=== PATIENT | male | born 1960 | race Caucasian/White ===

== ENCOUNTER 2019-10-18 11:39 | Outpatient (CLI) | payer MEDICARE ==
[~2019-10-18] VITALS: Ht 177.8 cm; Wt 70.6 kg
--- NOTE | ~2019-10-18 | HEMODYNAMI ---
PATIENT:MICHELLE DAVEY MEDICAL RECORD: [id number] : 56 [id number] ADMISSION DATE: 10/18/19 Generatedon:10/19/20198:58 Patient name: MICHELLE DAVEY Patient #: [id number] SSN: [id number] : 1960 Date of study: 10/19/2019 Page: Of Hemodynamic Procedure Report Patient Data Patient Demographics Procedure consent was obtained First Name: MICHELLE Gender: Male Last Name: TAMICA : 1960 Middle Initial: D Age: 59 year(s) Patient #: [id number] Race: SSN: [id number] Additional ID: [id number] Contact details [address]: [address] [place] [address] State: [place] City: [place] Zip code: [address] Past Medical History Allergies Allergen Reaction Date Comments Reported Other allergy 10/18/2019 PCN Other allergy 10/19/2019 PCN, STATIN Admission Admission Data Admission Date: 10/18/2019 Admission Time: 12:47 Arrival Date: 10/18/2019 Arrival Time: 0:00 Admit Source: Emergency Insurance Payor: Private department health insurance Room #: D.2122 [facility] #: [id number] Height (in.): 70.08 BSA: 1.95 (m2) Height (cm.): 178 BMI: 24.3 (kg/m2) Weight (lbs.): 169.76 Weight (kg.): 77 Lab Results Lab Result Date: 10/18/2019 Lab Result Time: 0:00 Biochemistry Name Units Result Min Max BUN mg/dl 21 --(----)-* 7 18 Creatinine mg/dl 0.8 --(-*--)-- 0.6 1.3 eGFR ml/min 90 --(*---)-- 90 120 NONAFRICAN CBC Name Units Result Min Max Hematocrit % 44.8 --(*---)-- 42 54 Hemoglobin g/dl 16.1 --(--*-)-- 13.5 17.5 Procedure Procedure Types Cath Procedure Diagnostic Procedure Sedation Charges Moderate Sedation up to 15 minutes PCI Procedure Coronary Stent Coronary Stent Initial PTCA Coronary Atherectomy Atherectomy w/Stent Coronary Initial Hemochron ACT Test Procedure Description Procedure Date Procedure Date: 10/19/2019 Procedure Start Time: 8:27 Procedure End Time: 8:47 Procedure Staff Name Function Kody Dodd MD Performing Physician Roni Calabrese RN Nurse Spring Guevara RT Scrub Patricia Sun RT Monitor Procedure Data Cath Procedure Fluoroscopy Diagnostic fluoroscopy Total fluoroscopy Time: 4.7 time: 4.7 min min Diagnostic fluoroscopy Total fluoroscopy dose: 351 dose: 351 mGy mGy Contrast Material Contrast Material Type Amount (ml) Isovue 370 80 Entry Location Entry Primary Successful Side Size Upsize Upsize Entry Closure Succes sful Closure Location (Fr) 1 (Fr) 2 (Fr) Remarks Device Remarks Femoral Left 6 Fr Exoseal artery Short Estimated blood loss: 10 ml Procedure Complications No complications Procedure Medications Medication Administration Route Dosage 0.9% NaCl I.V. 100 ml/hr Oxygen etCO2 Nasal cannula 2 l/min Heparin Flush Bag added to field 2 bags (1000units/500ml NS) Lidocaine 2% added to field 20 Versed I.V. 2 mg Fentanyl I.V. 100 mcg Heparin Bolus I.V. 4000 units Hemodynamics Rest BSA: 1.95 (m2) HGB: 16.1 (g/dl) O2 Consumption: Estimated: 228 (ml/min) O2 Consu mption indexed: Estimated:116.92 (ml/min/m) Heart Rate: 69 (bpm) Snapshots Pre Cath Intra NCS Post Cath Vital Signs Time Heart Resp SPO2 etCO2 NIBP Rhythm Pain Sedation Rate (ipm) (%) (mmHg) (mmHg) Status Level (bpm) 8:13:53 68 14 97 37.5 119/64(93) NSR 0 (11) 10(A) , No pain 8:18:03 71 14 94 0 113/68(98) NSR 0 (11) 10(A) , No pain 8:22:11 67 12 95 23.2 109/69(89) NSR 0 (11) 10(A) , No pain 8:26:17 69 12 96 27 99/71(88) NSR 0 (11) 10(A) , No pain 8:30:20 68 12 94 24.7 102/64(81) NSR 0 (11) 10(A) , No pain 8:34:26 71 11 94 32.9 102/63(86) NSR 0 (11) 9(A) , No pain 8:38:32 67 11 96 31.4 114/63(98) NSR 0 (11) 9(A) , No pain 8:42:42 67 12 96 35.9 102/63(83) NSR 0 (11) 9(A) , No pain 8:46:45 62 9 96 20.2 95/67(85) NSR 0 (11) 9(A) , No pain Medications Time Medication Route Dose Verified Delivered Reason Notes Effectiveness by by 8:22:53 0.9% NaCl I.V. 100 Roni Roni Per physician ml/hr Bharati Calabrese RN RN 8:23:06 Oxygen etCO2 2 Roni Roni for low 02 sats Nasal l/min Bharati Calabrese cannula RN RN 8:23:17 Heparin Flush added 2 Roni Roni used for Bag to bags Bharati Calabrese procedure (1000units/500ml RN RN NS) 8:23:28 Lidocaine 2% added 20ml Roni Roni for local to vial Bharati Calabrese anesthetic field LEARY RN 8:24:52 Versed I.V. 2 mg Roni Roni for sedation Bharati Calabrese RN RN 8:25:01 Fentanyl I.V. 100 Roni Roni for anxiety mcg Bharati Calabrese RN RN 8:30:31 Heparin Bolus I.V. 4000 Roni Roni for units Bharati Calabrese anticoagulation RN sterilizer operator Log Time Note 7:48:37 Patient Weight : 169.76 lbs 7:48:37 Patient Height : 70.08 inches 7:50:08 Diagnostic Cath Status : Urgent 7:51:38 Stress Test: no; N/A ? 7:51:40 Risk of Mortality: 1.3 7:51:43 Risk of blood transfusion: 0.1 7:51:46 Risk of TAYLER: 0.8 7:51:49 Lab results completed and on chart. 7:52:12 H&P Date Dictated: 10/18/2019 Within 30 days and on chart.. 7:52:13 Pre-procedure instructions explained to patient. 7:52:14 Pre-op teaching completed and patient verbalized understanding. 7:52:16 Family in patients room. 7:52:19 Patient NPO since Midnight. 7:53:22 Patient allergic to Other allergyPCN, STATIN 7:54:09 ACC Patient presents with Stable Angina CCS Anginal Class 2--Slight limitation of ordinary activity. 7:54:13 Procedure Status Urgent Heart Cath (IP). 7:54:19 Time tracking: Regular hours (M-F 7:00 - 5:00) 7:54:24 Plan of Care:Hemodynamics will remain stable., Cardiac rhythm will remain stable., Comfort level will be maintained., Respiratory function will remain adequate., Patient/ family verbilizes understanding of procedure., Procedure tolerated without complication., Recovers from procedure without complications.. 7:54:34 Is the patient allergic to Iodine/contrast media? No. 7:54:37 Is patient on blood thinner?Yes 7:54:39 ACC The patient was administered the following blood thiners within the last 24 hours: ACCPlavix 7:54:49 Patient diabetic? No. 7:54:51 If diabetic: On Metformin? N/A 7:54:58 Was the patient premedicated? Yes 7:55:06 ----Pre-sedation anethsthesia assessment.---- 7:55:10 Previous problem with sedation/anesthesia? No ? 7:55:14 Snore? Yes 7:55:20 Sleep apnea? No 7:55:25 Deviated septum? No 7:55:26 Opens mouth fully? Yes 7:55:27 Sticks out tongue? Yes 7:55:35 Airway obstruction? No ? 7:55:40 Dentures? Yes IN TIGHT 7:57:04 Roni Calabrese RN sent for patient. Start room use. 8:06:34 Patient received from Med II to CCL 1 Alert and oriented. Tansferred to table in Supine position. 8:06:39 Signed procedure consent form obtained from patient. 8:06:41 Warm blankets applied, and zaira hugger turned on for patient comfort. 8:06:42 Correct patient and procedure confirmed by team. 8:06:43 ECG and BP/O2 sat monitors applied to patient. 8:12:51 Vital chart was started 8:12:52 Full Disclosure recording started 8:13:00 Pre procedure: right dorsailis pedis pulse 2+ Normal; easily identifiable; not easily obliterated 8:13:03 Patient pain scale 0/10 ?. 8:13:33 IV patent on arrival in left antecubital with 0.9% NaCl at [facility]. 8:13:45 Left groin area was prepped with chlora-prep and draped in sterile fashion 8:13:46 Sharps counted by scrub and verified by R.N. 8:13:46 Alarms reviewed by R. N. 8:13:57 Baseline sample Acquired. 8:14:10 Use device set TAUTH PCI 8:14:32 SHEATH 6FR [place] ([id number]) opened to sterile field. 8:14:39 CHOICE PT Extra Support 182cm wire ([id number]) opened to sterile field. 8:14:40 INFLATOR Merit BasixCompak ([id number]) opened to sterile field. 8:15:24 Rhythm: sinus rhythm 8:20:26 Physician paged 8:22:53 0.9% NaCl 100 ml/hr I.V. was administered by Roni Calabrese RN; Per physician; Verbal order read back and verified. 8:23:06 Oxygen 2 l/min etCO2 Nasal cannula was administered by Roni Calabrese RN; for low 02 sats; Verbal order read back and verified. 8:23:17 Heparin Flush Bag (1000units/500ml NS) 2 bags added to field was administered by Roni Calabrese RN; used for procedure; Verbal order read back and verified. 8:23:28 Lidocaine 2% 20ml vial added to field was administered by Roni Calabrese RN; for local anesthetic; Verbal order read back and verified. 8:24:27 Physician arrived 8:24:52 Versed 2 mg I.V. was administered by Roni Calabrese RN; for sedation; Verbal order read back and verified. 8:25:01 Fentanyl 100 mcg I.V. was administered by Roni Calabrese RN; for anxiety; Verbal order read back and verified. 8:25:28 --------ALL STOP TIME OUT------ 8:25:29 Final Timeout: patient, procedure, and site verified with staff and physician. All members of the team are in agreement. 8:25:32 Left groin site verified by team. 8:25:36 Fire Safety Assessment: A--An alcohol-based skin anteseptic being used preoperatively., C--Open oxygen or nitrous oxide is being used., D--An ESU, laser, or fiber-optic light is being used. 8:25:40 Physical assessment completed. ASA score P 2 - A patient with mild systemic disease as per Kody Dodd MD. 8:25:44 1) 90+ Normal kidney functon but urine findings or structural abnormalities or genetic trait point to kidney disease. 8:25:49 Maximum allowable contrast dose (3.7 X eGFR X 0.75)250 ml. 8:26:07 Sedation plan: IV Moderate Sedation Medication:Versed, Fentanyl 8:27:50 Procedure started. 8:27:54 Local anesthetic to left femerol artery with Lidocaine 2% by Kody Dodd MD.INITIAL ACCESS ONLY 8:27:59 GUIDE 6FR XBLAD 3.5 catheter ([id number]) opened to sterile field. 8:28:04 GUIDE 6FR XB 4.0 catheter ([id number]) opened to sterile field. 8:28:21 A 6 Fr Short sheath was inserted into the Left Femoral artery 8:28:30 6 Fr XB 4 guide catheter was inserted over the wire 8:29:23 LASER ELCA 0.9 Rx atherectomy catheter ([id number]) opened to sterile field. 8:29:36 CHOICE ES 182 wire advanced. 8:30:01 Wire advanced across lesion. 8:30:19 Pre PCI Site: [place] mCirc has 90% stenosis. 8:30:31 Heparin Bolus 4000 units I.V. was administered by Roni Calabrese RN; for anticoagulation; Verbal order read back and verified. 8:32:01 Place stent Inflation Number: 1 A JENNIFER RX 3.0 x 15 stent ([id number]) was prepped and advanced across the Mid CX . The stent was deployed at 17 ELLE for 0:00 (min:sec) . 8:32:23 Stent catheter was removed intact over wire. 8:32:42 Wire redirected to LAD. 8:32:59 Inflation number: 1 The stent balloon was then re-inflated across the Mid LAD to 21 ELLE for 0:00 (min:sec) . 8:33:03 Inflation number: 2 The stent balloon was then re-inflated across the Mid LAD to 21 ELLE for 0:00 (min:sec) . 8:33:06 Stent catheter was removed intact over wire. 8:33:48 ELCA LASER CATHETER wire advanced. 8:34:39 Laser pass to mLAD with Fluence of 80 and Rate of 40. 8:36:52 Laser total treatment time: 1 minutes 20 seconds 8:36:59 Laser total pulses delivered: 3200 8:37:02 Laser catheter removed. 8:38:17 Pre PCI Site: [place] pLAD has 70% stenosis. 8:39:09 Place stent Inflation Number: 1 A JENNIFER RX 3.5 x 12 stent ([id number]) was prepped and advanced across the Prox LAD . The stent was deployed at 21 ELLE for 0:00 (min:sec) . 8:39:24 Stent catheter was removed intact over wire. 8:39:25 Guide catheter removed. 8:39:25 Wire removed. 8:39:28 EXOSEAL 6Fr (EX600) opened to sterile field. 8:39:39 Sheath removed intact; hemostasis achieved with Exoseal to the Left Femoral artery. 8:39:54 Procedure ended.(Physican Out) 8:41:14 Fluoroscopy time 04.70 minutes. 8:41:31 Fluoroscopy dose: 351 mGy 8:41:31 Flurop Dose total: 351 8:41:39 Dose Area Product 44136 mGy/cm. 8:41:43 Contrast amount:Isovue 370 80ml. 8:41:46 Maximum allowable dose exceeded? No. 8:41:47 Sharps counted by scrub and verified by R.N. 8:41:55 Post-op/insertion site Left Femoral artery dressed using a 4 x 4 and Tegaderm. 8:42:02 Post left femerol artery:stable, soft, clean and dry 8:42:04 Post Procedure Pulses reassessed and unchanged 8:42:07 Post procedure: right dorsailis pedis pulse 2+ Normal; easily identifiable; not easily obliterated. 8:42:10 Post-procedure physical assessment completed. ASA score P 2 - A patient with mild systemic disease as per Kody Dodd MD. 8:42:13 Post procedure rhythm: unchanged. 8:42:15 Estimated blood loss: 10 ml 8:42:17 Patient needs reinforcement of post procedure teaching. 8:42:17 Post procedure instruction explained to patient.Patient verbalizes understanding. 8:43:14 Procedure type changed to Cath procedure, Diagnostic procedure, Sedation Charges, Moderate Sedation up to 15 minutes, PCI procedure, Coronary Stent, Coronary Stent Initial, PTCA, Coronary Atherectomy, Atherectomy w/Stent Coronary Initial, Hemochron ACT Test 8:43:19 Procedure Complication : No complications 8:43:23 [facility] Findings: MVD- PCI performed (see procedure note) 8:43:25 Operative report dictated upon procedure completion. 8:43:26 See physician's report for complete and final results. 8:43:33 Report given to [facility]. 8:43:36 Patient transfered to [facility] with Bed. 8:46:40 Procedure and supply charges have been captured, reviewed, submitted and are correct. 8:46:54 ACT drawn and resulted at HIGH seconds. (normal therapeutic range 180-240 seconds). 8:47:33 Vital chart was stopped 8:47:36 Full Disclosure recording stopped 8:47:36 Procedure ended. 8:47:52 ACC-PCI Only Patient was given prescriptions, or instructed by Kody Dodd MD to start/continue the following medications upon discharge: Plavix 8:47:53 End room use (Document Last) 8:48:05 End room use (Document Last) 8:48:56 End room use (Document Last) Intervention Summary Intervention Notes Time ActionType Lesion and Equipment Used Action# Pressure Duration Attributes 8:32:01 Place stent Mid CX JENNIFER RX 3.0 x 1 17 00:00 15 stent ([id number]) 8:32:59 Reinflate Mid LAD JENNIFER RX 3.0 x 1 21 00:00 stent 15 stent balloon ([id number]) 8:33:03 Reinflate Mid LAD JENNIFER RX 3.0 x 2 21 00:00 stent 15 stent balloon ([id number]) 8:39:09 Place stent Prox LAD JENNIFER RX 3.5 x 1 21 00:00 12 stent ([id number]) Device Usage Item Name Manufacture Quantity Catalog Number Hospital Part Current M inimal Lot# / Charge Number Stock Stock Serial# Code SHEATH 6FR Terumo 1 [id number] [id number] 558436 [id number] 4 0 [place] ([id number]) CHOICE PT Doon 1 [id number] 056180 031165 293997 5 Extra Support Scientific 182cm wire ([id number]) INFLATOR Merit Merit 1 [id number] 454579 604463 948452 1 5 [employer] ([id number]) GUIDE 6FR Cardinal 1 [id number] 232084 010818 402337 1 0 XBLAD 3.5 Health catheter ([id number]) GUIDE 6FR XB Cardinal 1 [id number] 950905 684772 512085 2 4.0 catheter Health (05442456) LASER ELCA 0.9 Marlee 1 110-004 248937 093963 773908 5 Rx atherectomy [employer] catheter (084198) (425528) JENNIFER RX 3.0 x Medtronic 1 [id number] 851333 3115939 049338 5 [id number] 15 stent ([id number]) JENNIFER RX 3.5 x Medtronic 1 [id number] 123994 4466511 443602 5 [id number] 12 stent ([id number]) EXOSEAL 6Fr Cardinal 1 EX600 939491 326192 003234 1 0 (EX600) Health Signature Audit [place] Stage Time Signature Unsigned Intra-Procedure 10/19/2019 Patricia Sun 8:48:05 AM RT(R) Intra-Procedure 10/19/2019 Roni 8:48:56 AM Bharati LEARY Intra-Procedure 10/19/2019 Kody Dodd MD 8:49:08 AM 10/19/2019 8:52:16 AM Intra-Procedure 10/19/2019 Kody Dodd 8:53:52 AM Intra-Procedure 10/19/2019 Kody Dodd MD 8:54:52 AM 10/19/2019 8:57:44 AM Intra-Procedure 10/19/2019 Kody Dodd 8:58:[address] [place] [address]
--- NOTE | ~2019-10-18 | HEMODYNAMI ---
PATIENT:MICHELLE DAVEY MEDICAL RECORD: [id number] : 56 [id number] ADMISSION DATE: 10/18/19 Generatedon:10/18/201916:59 Patient name: MICHELLE DAVEY Patient #: [id number] SSN: [id number] : 1960 Date of study: 10/18/2019 Page: Of Hemodynamic Procedure Report Patient Data Patient Demographics Procedure consent was obtained First Name: MICHELLE Gender: Male Last Name: TAMICA : 1960 Middle Initial: D Age: 59 year(s) Patient #: [id number] Race: SSN: [id number] Additional ID: [id number] Contact details Address: [address] [place] [address] State: [place] City: [place] Zip code: [address] Past Medical History Allergies Allergen Reaction Date Comments Reported Other allergy 10/18/2019 PCN Admission Admission Data Admission Date: 10/18/2019 Admission Time: 12:47 Arrival Date: 10/18/2019 Arrival Time: 0:00 Admit Source: Emergency Insurance Payor: Private department health insurance Room #: D.2122 [facility] #: [id number] Height (in.): 70.08 BSA: 1.95 (m2) Height (cm.): 178 BMI: 24.3 (kg/m2) Weight (lbs.): 169.76 Weight (kg.): 77 Lab Results Lab Result Date: 10/18/2019 Lab Result Time: 0:00 Biochemistry Name Units Result Min Max BUN mg/dl 21 --(----)-* 7 18 Creatinine mg/dl 0.8 --(-*--)-- 0.6 1.3 eGFR ml/min 90 --(*---)-- 90 120 NONAFRICAN CBC Name Units Result Min Max Hematocrit % 44.8 --(*---)-- 42 54 Hemoglobin g/dl 16.1 --(--*-)-- 13.5 17.5 Procedure Procedure Types Cath Procedure Diagnostic Procedure [facility] ED w/Coronaries FFR/IVUS FFR Initial Sedation Charges Moderate Sedation up to 15 minutes PCI Procedure Coronary Stent Coronary Stent Initial Hemochron ACT Test Procedure Description Procedure Date Procedure Date: 10/18/2019 Procedure Start Time: 16:35 Procedure End Time: 16:57 Procedure Staff Name Function Kody Dodd MD Performing Physician Stefanie Baker RT Monitor Roni Calabrese RN Nurse Patricia Sun RT Scrub Procedure Data Cath Procedure Fluoroscopy Diagnostic fluoroscopy Total fluoroscopy Time: 3.9 time: 3.9 min min Diagnostic fluoroscopy Total fluoroscopy dose: 500 dose: 500 mGy mGy Contrast Material Contrast Material Type Amount (ml) Isovue 300 107 Entry Location Entry Primary Successful Side Size Upsize Upsize Entry Closure Succes sful Closure Location (Fr) 1 (Fr) 2 (Fr) Remarks Device Remarks Femoral Right 5 Fr 6 Fr Exoseal artery Short Estimated blood loss: 10 ml Diagnostic catheters Device Type Used For End Catheter Placement MULTIPACK Pigtail 5 Fr LV Angiography catheter MULTIPACK JL 4.0 5Fr Left Coronary catheter Angiography MULTIPACK 3DRC 5Fr Right Coronary catheter Angiography Procedure Complications No complications Procedure Medications Medication Administration Route Dosage 0.9% NaCl I.V. 100 ml/hr Oxygen etCO2 Nasal cannula 2 l/min Heparin Flush Bag added to field 2 bags (1000units/500ml NS) Lidocaine 2% added to field 20 Plavix P.O. 75 mg Versed I.V. 2 mg Fentanyl I.V. 100 mcg Heparin Bolus I.V. 4000 units Hemodynamics Rest BSA: 1.95 (m2) HGB: 16.1 (g/dl) O2 Consumption: Estimated: 225.82 (ml/min) O2 Co nsumption indexed: Estimated:115.81 (ml/min/m) Heart Rate: 66 (bpm) Snapshots Pre Cath Intra NCS Post Cath Vital Signs Time Heart Resp SPO2 etCO2 NIBP (mmHg) Rhythm Pain Sedation Rate (ipm) (%) (mmHg) Status Level (bpm) 16:05:35 67 15 98 23.2 118/70(95) NSR 0 (11) 10(A) , No pain 16:09:43 66 14 97 32.2 110/73(86) NSR 0 (11) 10(A) , No pain 16:13:52 64 13 96 32.2 122/69(83) NSR 0 (11) 10(A) , No pain 16:18:06 65 12 96 34.4 121/72(85) NSR 0 (11) 10(A) , No pain 16:22:16 65 13 96 35.2 111/71(85) NSR 0 (11) 10(A) , No pain 16:26:26 63 13 96 30.7 114/70(86) NSR 0 (11) 10(A) , No pain 16:30:38 63 13 96 9.7 111/69(85) NSR 0 (11) 10(A) , No pain 16:34:50 65 13 96 31.4 110/65(80) NSR 0 (11) 10(A) , No pain 16:39:00 65 13 96 29.2 108/68(89) NSR 0 (11) 9(A) , No pain 16:43:08 66 12 95 29.9 107/70(83) NSR 0 (11) 9(A) , No pain 16:47:15 67 13 95 36.7 123/72(101) NSR 0 (11) 9(A) , No pain 16:51:28 64 11 97 28.4 110/67(92) NSR 0 (11) 9(A) , No pain 16:55:35 66 12 97 23.2 121/75(91) NSR 0 (11) 9(A) , No pain Medications Time Medication Route Dose Verified Delivered Reason Notes Effectiveness by by 16:03:43 0.9% NaCl I.V. 100 Roni Roni Per physician ml/hr Bharati Calabrese RN RN 16:03:53 Oxygen etCO2 2 Roni Roni for low 02 sats Nasal l/min Bharati Calabrese cannula RN RN 16:04:03 Heparin Flush added 2 Roni Roni used for Bag to bags Bharati Calabrese procedure (1000units/500ml RN RN NS) 16:04:13 Lidocaine 2% added 20ml Roni Roni for local to vial Bharati Calabrese anesthetic field RN RN 16:04:24 Plavix P.O. 75 mg Roni Roni for Lorigan Bharati antiplatelet RN RN therapy 16:34:12 Versed I.V. 2 mg Roni Roni for sedation Bharati Calabrese RN RN 16:34:21 Fentanyl I.V. 100 Roni Roni for sedation mcg Bharati Calabrese RN RN 16:43:34 Heparin Bolus I.V. 4000 Ronitulio Tamayo for units Bharati Calabrese anticoagulation RN plastic surgery manager Log Time Note 15:20:47 Informed consent obtained and on chart 15:21:17 Diagnostic Cath Status : Urgent 15:24:06 Arrival Date: 10/18/2019 12:00:00 AM 15:24:28 Insurance Payor : Private health insurance 15:24:32 Admit Source: Emergency department 15:24:37 Patient Height : 70.08 inches 15:24:43 Patient Weight : 169.76 lbs 15:25:21 Patricia Sun RT(R) sent for patient. Start room use. 15:25:45 Lab Result : Hemoglobin 16.1 g/dl 15:25:45 Lab Result : BUN 21 mg/dl 15:25:45 Lab Result : Creatinine 0.8 mg/dl 15:25:45 Lab Result : eGFR NONAFRICAN 90 ml/min 15:25:45 Lab Result : Hematocrit 44.8 % 15:29:09 Risk of Mortality: 1.3 15:29:15 Risk of blood transfusion: 0.1 15:29:21 Risk of TAYLER: 0.8 15:29:28 Lab results completed and on chart. 15:30:10 Patient allergic to Other allergyPCN 15:48:27 Procedure Status Urgent Heart Cath (IP). 15:48:30 Time tracking: Regular hours (M-F 7:00 - 5:00) 15:48:33 Plan of Care:Hemodynamics will remain stable., Cardiac rhythm will remain stable., Comfort level will be maintained., Respiratory function will remain adequate., Patient/ family verbilizes understanding of procedure., Procedure tolerated without complication., Recovers from procedure without complications.. 15:48:37 H&P Date Dictated: 10/18/2019 New H&P dictated by physician.. 15:51:00 Patient received from Med II to CCL 1 Alert and oriented. Tansferred to table in Supine position. 15:51:01 Warm blankets applied, and zaira hugger turned on for patient comfort. 15:51:02 Correct patient and procedure confirmed by team. 16:03:43 0.9% NaCl 100 ml/hr I.V. was administered by Roni Calabrese RN; Per physician; Verbal order read back and verified. 16:03:53 Oxygen 2 l/min etCO2 Nasal cannula was administered by Roni Calabrese RN; for low 02 sats; Verbal order read back and verified. 16:04:03 Heparin Flush Bag (1000units/500ml NS) 2 bags added to field was administered by Roni Calabrese RN; used for procedure; Verbal order read back and verified. 16:04:13 Lidocaine 2% 20ml vial added to field was administered by Roni Calabrese RN; for local anesthetic; Verbal order read back and verified. 16:04:24 Plavix 75 mg P.O. was administered by Roni Calabrese RN; for antiplatelet therapy; Verbal order read back and verified. 16:04:28 Vital chart was started 16:04:59 ECG and BP/O2 sat monitors applied to patient. 16:05:03 Baseline sample Acquired. 16:05:09 Rhythm: sinus rhythm 16:05:13 Full Disclosure recording started 16:05:13 - 16:05:14 Pre-procedure instructions explained to patient. 16:05:15 Pre-op teaching completed and patient verbalized understanding. 16:05:17 Family in patients room. 16:05:21 Patient NPO since Breakfast. 16:05:29 Is the patient allergic to Iodine/contrast media? No. 16:05:33 Was the patient premedicated? Yes 16:05:35 Is patient on blood thinner?Yes 16:05:41 ACC The patient was administered the following blood thiners within the last 24 hours: ACCPlavix 16:06:05 PLAVIX GIVEN BEFORE CASE STARTED. 16:06:09 Patient diabetic? No. 16:06:12 ----Pre-sedation anethsthesia assessment.---- 16:06:16 Previous problem with sedation/anesthesia? No ? 16:06:19 Snore? Yes 16:06:21 Sleep apnea? No 16:06:24 Deviated septum? No 16:06:26 Opens mouth fully? Yes 16:06:29 Sticks out tongue? Yes 16:06:33 Airway obstruction? No ? 16:06:41 Dentures? Yes BOTH IN TIGHT 16:06:54 Pre procedure: right dorsailis pedis pulse 2+ Normal; easily identifiable; not easily obliterated 16:07:08 Modified Jacob's test Ulnar > 7 seconds. 16:07:35 Patient pain scale 0/10 ?. 16:07:48 IV patent on arrival in left forearm with 0.9% NaCl at [facility]. 16:07:58 Stress Test: no; N/A ? 16:08:04 Right groin area was prepped with chlora-prep and draped in sterile fashion 16:08:06 Alarms reviewed by R. N. 16:08:07 Sharps counted by scrub and verified by R.N. 16:08:17 Use device set Femoral Dx 16:08:18 ACIST Syringe (81290) opened to sterile field. 16:08:19 Bag Decanter (2002S) opened to sterile field. 16:08:20 Medline Cath Pack ([id number]) opened to sterile field. 16:08:23 ACIST Hand Control (84464) opened to sterile field. 16:08:24 ACIST Manifold (16284) opened to sterile field. 16:08:25 DIAGNOSTIC Multipack 5Fr catheter set (CH7024) opened to sterile field. 16:08:30 Tegaderm 4 x 4 (1626W) opened to sterile field. 16:08:32 EXOSEAL 5Fr (EX500) opened to sterile field. 16:08:33 SHEATH 5FR [place] (SPJ570) opened to sterile field. 16:08:34 EMERALD Guide Wire (410-974) opened to sterile field. 16:14:07 Zero performed for pressure channel P1 16:33:11 Physician arrived 16:33:12 --------ALL STOP TIME OUT------ 16:33:13 Final Timeout: patient, procedure, and site verified with staff and physician. All members of the team are in agreement. 16:33:16 Right groin site verified by team. 16:33:24 Fire Safety Assessment: A--An alcohol-based skin anteseptic being used preoperatively., C--Open oxygen or nitrous oxide is being used., D--An ESU, laser, or fiber-optic light is being used. 16:33:29 Physical assessment completed. ASA score P 2 - A patient with mild systemic disease as per Kody Dodd MD. 16:33:34 1) 90+ Normal kidney functon but urine findings or structural abnormalities or genetic trait point to kidney disease. 16:33:41 Maximum allowable contrast dose (3.7 X eGFR X 0.75)250 ml. 16:33:49 Sedation plan: IV Moderate Sedation Medication:Versed, Fentanyl 16:34:12 Versed 2 mg I.V. was administered by Roni Calabrese RN; for sedation; Verbal order read back and verified. 16:34:21 Fentanyl 100 mcg I.V. was administered by Roni Calabrese RN; for sedation; Verbal order read back and verified. 16:35:22 Procedure started. 16:35:45 Local anesthetic to right femoral artery with Lidocaine 2% by Kody Dodd MD.INITIAL ACCESS ONLY 16:36:44 A 5 Fr sheath was inserted into the Right Femoral artery 16:36:57 A MULTIPACK Pigtail 5 Fr catheter was advanced over the wire and used for LV Angiography. 16:37:07 Injector settings: Ml/sec: 5, Volume: 15, 16:37:34 EF : 55 % 16:37:41 LV gram done using OTERO 16:37:44 Catheter removed. 16:37:53 A MULTIPACK JL 4.0 5Fr catheter was advanced over the wire and used for Left Coronary Angiography. 16:38:01 LCA angiography performed. 16:39:03 SHEATH 6FR [place] (EIP322) opened to sterile field. 16:39:04 Higbee Verrata Plus pressure wire (23409O) opened to sterile field. 16:39:20 INFLATOR Merit BasixCompak (UD3034) opened to sterile field. 16:39:26 Catheter removed. 16:39:41 A MULTIPACK 3DRC 5Fr catheter was advanced over the wire and used for Right Coronary Angiography. 16:39:56 RCA angiography performed. 16:40:03 Catheter removed. 16:40:22 GUIDE 6FR AR 2.0 catheter (YS1TL71) opened to sterile field. 16:40:41 Proceeding to intervention. 16:40:58 Sheath upsized to a 6 Fr Short. 16:41:05 ACC Pre-intervention CORNELIA Flow is 3. 16:41:35 Pre PCI Site: [place] mRCA has 99% stenosis. 16:41:44 6 Fr AR2 guide catheter was inserted over the wire 16:42:29 CHOICE PT Extra Support 182cm wire ([id number]) opened to sterile field. 16:42:45 CHOICE PT wire advanced. 16:42:49 Wire advanced across lesion. 16:43:34 Heparin Bolus 4000 units I.V. was administered by Roni Calabrese RN; for anticoagulation; Verbal order read back and verified. 16:44:06 Inflate balloon Inflation number: 1 A EUPHORA 2.0 x 15 Balloon ([id number]) was prepped and advanced across the Mid RCA , then inflated to 15 ELLE for 0:00 (min:sec) . 16:46:36 Balloon removed over the wire. 16:46:39 Place stent Inflation Number: 2 A JENNIFER RX 2.0 x 15 stent ([id number]) was prepped and advanced across the Mid RCA . The stent was deployed at 15 ELLE for 0:00 (min:sec) . 16:46:43 Stent catheter was removed intact over wire. 16:47:03 Place stent Inflation Number: 3 A JENNIFER RX 3.5 x 12 stent ([id number]) was prepped and advanced across the Mid RCA . The stent was deployed at 13 ELLE for 0:00 (min:sec) . 16:47:09 Stent catheter was removed intact over wire. 16:47:14 Wire removed. 16:47:15 Guide catheter removed. 16:47:28 GUIDE 6FR XB 4.0 catheter ([id number]) opened to sterile field. 16:47:58 6 Fr XB4 guide catheter was inserted over the wire 16:48:17 FFR/IFR wire advanced. 16:49:37 Wire advanced across lesionLAD. 16:49:50 ACC Post-intervention CORNELIA Flow is 3. 16:50:34 Baseline FFR 0.80. 16:51:14 Post PCI Site: [place] mRCA has 0% stenosis. 16:51:34 Wire removed. 16:51:36 Guide catheter removed. 16:52:02 EXOSEAL 6Fr (EX600) opened to sterile field. 16:52:19 Sheath removed intact; hemostasis achieved with Exoseal to the Right Femoral artery. 16:52:26 Procedure ended.(Physican Out) 16:53:10 ACT drawn and resulted at 132 seconds. (normal therapeutic range 180-24 0 seconds). 16:53:27 Contrast amount:Isovue 300 107ml. 16:53:31 Maximum allowable dose exceeded? No. 16:53:41 Fluoroscopy time 03.90 minutes. 16:53:49 Fluoroscopy dose: 500 mGy 16:53:49 Flurop Dose total: 500 16:54:06 Dose Area Product 33648 mGy/cm. 16:54:08 Sharps counted by scrub and verified by R.N. 16:54:13 Insertion/operative site no bleeding no hematoma. 16:54:19 Post-op/insertion site Right Femoral artery dressed using a 4 x 4 and Tegaderm. 16:54:24 Post right femoral artery:stable 16:54:27 Post Procedure Pulses reassessed and unchanged 16:54:32 Post-procedure physical assessment completed. ASA score P 2 - A patient with mild systemic disease as per Kody Dodd MD. 16:54:37 Post procedure rhythm: unchanged. 16:54:41 Estimated blood loss: 10 ml 16:54:44 Post procedure instruction explained to patient.Patient verbalizes understanding. 16:54:45 Patient needs reinforcement of post procedure teaching. 16:55:46 Procedure type changed to Cath procedure, Diagnostic procedure, [facility], C w/Coronaries, FFR/IVUS, FFR Initial, Sedation Charges, Moderate Sedation up to 15 minutes, PCI procedure, Coronary Stent, Coronary Stent Initial, Hemochron ACT Test 16:56:36 Procedure and supply charges have been captured, reviewed, submitted an d are correct. 16:57:33 Procedure Complication : No complications 16:57:36 Vital chart was stopped 16:57:40 [facility] Findings: MVD- PCI performed (see procedure note) 16:57:45 Operative report dictated upon procedure completion. 16:57:46 See physician's report for complete and final results. 16:57:48 Report given to [facility]. 16:57:53 Patient transfered to [facility] with Bed. 16:57:56 Procedure ended. 16:57:56 Full Disclosure recording stopped 16:58:04 ACC-PCI Only Patient was given prescriptions, or instructed by Kody Dodd MD to start/continue the following medications upon discharge: Plavix 16:58:06 End room use (Document Last) Intervention Summary Intervention Notes Time ActionType Lesion and Equipment Used Action# Pressure Duration Attributes 16:44:06 Inflate Mid RCA EUPHORA 2.0 x 1 15 00:00 balloon 15 Balloon ([id number]) 16:46:39 Place stent Mid RCA JENNIFER RX 2.0 x 2 15 00:00 15 stent ([id number]) 16:47:03 Place stent Mid RCA JENNIFER RX 3.5 x 3 13 00:00 12 stent ([id number]) Device Usage Item Name Manufacture Quantity Catalog Number Hospital Part Current Minimal Lot# / Charge Number Stock Stock Serial# Code ACIST Syringe Acist 1 69461 451951 100771 189144 20 (78780) Medical Systems Inc Bag Decanter Microtek 1 2001S 255548 30731 497648 5 (2001S) Medical Inc. Medline Cath Medline 1 [id number] 281357 26795 028874 5 Pack ([id number]) ACIST Hand Acist 1 55943 356270 617615 817567 5 Control Medical (44217) Systems Inc ACIST Manifold Acist 1 58559 319837 948812 717599 5 (93306) Medical Systems Inc DIAGNOSTIC Cardinal 1 PW7150 485351 91510 974543 30 Multipack 5Fr Health catheter set (KJ2793) Tegaderm 4 x 4 3M 1 1626W 498141 034205 451234 5 (1626W) EXOSEAL 5Fr Cardinal 1 EX500 234098 758138 437025 10 (EX500) Health SHEATH 5FR Terumo 1 GUO273 985656 553605 791372 5 [place] (SDN232) EMERALD Guide Cardinal 1 502-455 536983 031132 466235 5 Wire (502-455) Health MULTIPACK Cardinal 1 260785 5 Pigtail 5 Fr Health catheter MULTIPACK JL Cardinal 1 478315 5 4.0 5Fr Health catheter SHEATH 6FR Terumo 1 ION987 277099 613181 910481 40 [place] (CBP517) Higbee Higbee 1 54935B 871079 049239348 758603 5 Verrata Plus pressure wire (39033A) INFLATOR Merit Merit 1 CD3116 015435 830730 038285 15 TrustedID (HF7478) MULTIPACK 3DRC Cardinal 1 827875 5 5Fr catheter Health GUIDE 6FR AR Medtronic 1 [id number] 888778 35341 676814 1 2.0 catheter (FE3FT49) CHOICE PT [place] 1 [id number] 521704 421386 451325 5 Extra Support Scientific 182cm wire ([id number]) EUPHORA 2.0 x Medtronic 1 [id number] 778722 657954 608062 5 [id number] 15 Balloon ([id number]) JENNIFER RX 2.0 x Medtronic 1 [id number] 922765 9727488 680113 5 [id number] 15 stent ([id number]) JENNIFER RX 3.5 x Medtronic 1 [id number] 754513 7338116 407252 5 [id number] 12 stent ([id number]) GUIDE 6FR XB Cardinal 1 [id number] 641371 397717 323011 2 4.0 catheter Health (59924196) EXOSEAL 6Fr Cardinal 1 EX600 974970 019443 497276 10 (EX600) Health Signature Audit [place] Stage Time Signature Unsigned Intra-Procedure 10/18/2019 Stefanie 4:58:58 PM Olivia RT(R) (CV) Intra-Procedure 10/18/2019 Roni 4:59:26 PM Bharati LEARY Intra-Procedure 10/18/2019 Koyd Dodd 4:59:51 PM [place] [address] [id number] [place] [address]
[2019-10-18] MEDS ORDERED: ULTRAM50 MG PO (11:45)
[2019-10-18] MEDS ORDERED: PRAVACHOL20 MG PO (11:45)
[2019-10-18] MEDS ORDERED: LISINOPRIL2.5 MG PO (11:45)
[2019-10-18] MEDS ORDERED: PLAVIX75 MG PO (11:45)
[2019-10-18] MEDS ORDERED: ZANAFLEX4 MG PO (11:45)
[2019-10-18] MEDS ORDERED: BAYER CHEWABLE81 MG PO (11:45)
[2019-10-18 12:10] LABS: BASOPHILS 0.4 % (0-2); EOSINOPHILS 0.5 % (0-7); HEMATOCRIT 44.8 % (42.0-54.0); HEMOGLOBIN 16.1 g/dL (13.5-17.5); IMMATURE GRANULOCYTES 0.1 % (0-5); LYMPHOCYTES 30.7 % (15-50); MCH 35.1 pg (26.0-34.0); MCHC 35.9 g/dL (31.0-37.0); MCV 97.6 fL (80.0-100.0); MEAN PLATELET VOLUME 9.3 fL (7.4-10.4); MONOCYTES 7.9 % (2-11); NEUTROPHILS 60.4 % (40-80); PLATELET COUNT 231 10x3/uL (130-400); RBC 4.59 10x6/uL (4.20-6.10); RDW 14.6 % (11.5-14.5); WBC 8.4 10x3/uL (4.8-10.8)
[2019-10-18 12:22] LABS: CALC OSMOLALITY 282 mosm/kg (275-300); CALCIUM 9.4 mg/dL (8.5-10.1); CARBON DIOXIDE 30.5 mmol/L (21.0-32.0); CHLORIDE - SERUM 104 mmol/L (98-107); CREATININE - SERUM 0.8 mg/dL (0.6-1.3); GLUCOSE 115 mg/dL (74-106); POTASSIUM - SERUM 4.6 mmol/L (3.5-5.1); SODIUM 140 mmol/L (136-145); UREA NITROGEN 21 mg/dL (7-18); eGFR NON AFRICAN AMERICAN > 90 mL/min (90-120)
[2019-10-18 12:41] LABS: ALKALINE PHOSPHATASE 95 U/L (30-120); ALT (SGPT) 32 U/L (10-68); BILIRUBIN - TOTAL 0.33 mg/dL (0.2-1.3); CKMB 1.9 U/L (0.0-3.6); CREATINE KINASE 158 UL (21-232); PRO BNP 19 pg/mL (0-125); PROTEIN - SERUM 7.6 g/dL (6.4-8.2)
[2019-10-18 12:42] LABS: TROPONIN-I < 0.017 ng/mL (0.000-0.060)
--- NOTE | 2019-10-18 14:04 | NUR ---
RECEIVED PT TO ROOM 2121 VIA WHEELCHAIR, PT WAS ALBE TO TRANSFER FROM WHEELCHAIR TO BED WITH STEADY GATE. PT A/O X4, RESP EVEN AND NONLABORED ON RA. PT DENIES ANY PAIN AT THIS TIME. ORIENTED PT TO ROOM AND CALL LIGHT. WILL ASSESS PT AND START PLAN OF CARE.
[2019-10-18] MEDS ORDERED: FISH OIL 1,0001 CA1 PO (14:11)
[2019-10-18] MEDS ORDERED: MOBIC7.5 MG PO (14:11)
[2019-10-18] MEDS ORDERED: GLUCOSAMINE HC500 MG PO (14:12)
[2019-10-18 14:21] VITALS: BP 118/74; Ht 177.8 cm; Wt 70.6 kg
[2019-10-18 14:57] VITALS: BP 118/74
--- NOTE | 2019-10-18 15:36 | NUR ---
PRE-OP MEDS GIVEN AT THIS TIME. PT DENIES ANY NEEDS AT THIS TIME. CALL LIGHT IN REACH, FAMILY AT BEDSIDE, NAD NOTED, WILL CONTINUE TO MONITOR.
--- NOTE | 2019-10-18 15:48 | NUR ---
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
[2019-10-18 16:08] LABS: CHOL - HDL RATIO 3.8 ratio (2.3-4.9); LDL-HDL RATIO 2.6 ratio (1.5-3.5)
--- NOTE | 2019-10-18 17:10 | NUR ---
RECEIVED PT BACK TO ROOM 2121. PT DROWSY BUT EASILY AROUSES TO VOICE. VITALS SIGNS STABLE. PLACED PT ON FREQUENT VITAL SIGNS. RT GROIN DRESSING CDI, NO S/S OF HEMATOMA OR BLEEDING. INSTRUCTED PT TO LAY FLAT FOR THE NEXT FOUR HOURS. PT DENIES ANY NEEDS AT THIS TIME. CALL LIGHT IN REACH, FAMILY AT BEDSIDE, NAD NOTED,W ILL CONTINUE TO MONITOR.
--- NOTE | 2019-10-18 18:33 | NUR ---
NO CHANGES FROM PREVIOUS ASSESSMENT. PT RESTING COMFORTABLY IN BED, DENIES ANY NEEDS AT THIS TIME. CALL LIGHT IN REACH, FAMILY AT BEDSIDE.
--- NOTE | 2019-10-18 19:35 | NUR ---
RECEIVED REPORT, WILL ASSUME CARE OF PT, PT RESTING, FAMILY AT BEDSIDE, R.GROIN, SOFT, DRESSING D/C/I, BED IS LOW, SRX2, CALL LIGHT IN REACH, WILL CONTINUE PLAN OF CARE
[2019-10-18 20:44] VITALS: BP 101/57
[2019-10-19 00:11] VITALS: BP 101/64
--- NOTE | 2019-10-19 03:47 | NUR ---
I have reviewed this patient and I concur with the Shift Assessment completed by the Licensed Practical Nurse today this shift.
[2019-10-19 03:55] VITALS: BP 122/66
[2019-10-19 08:00] VITALS: BP 123/65
--- NOTE | 2019-10-19 08:10 | NUR ---
PT TO RN PALLIATIVE CARE.
--- NOTE | 2019-10-19 08:42 | HP ---
PATIENT: MICHELLE DAVEY MEDICAL RECORD: [id number] ACCOUNT: [id number] LOCATION:[address] : 56 ADMISSION DATE: 10/18/19 PCP: YADIRA NAJERA DO HISTORY AND PHYSICAL EXAMINATION DATE OF SERVICE: 10/18/2019 DIAGNOSES: 1. Unstable angina. 2. Coronary artery disease. 3. Hypertension. 4. Hyperlipidemia. 5. Family history of premature coronary artery disease. HISTORY OF PRESENT ILLNESS: This is a gentleman with a past history of coronary artery disease. Last cardiac stents were 13 years ago. At that time, he was told he had at least 50% stenosis and was not intervened on, began having chest pain 2 weeks ago. He has had multiple episodes of chest pain, it has escalated to 10-13 episodes of chest pain today requiring sublingual nitro. It is just like that of his previous angina. He remembers it well. It is a dull aching sensation across the anterior chest radiating to his left arm and his jaw. The episodes are becoming more frequent as well as longer in duration. He had an episode this morning, lasted up to 30 minutes quite severe. He broke out with a sweat and diaphoretic. He is currently pain free. His EKG is with no acute ST-T abnormalities. OVERALL IMPRESSION: Chest pain compatible with angina in an escalating unstable fashion. He is now class IV. We will proceed with coronary angiography later today. Further care depends upon the findings of the angiography. TRANSINT:[id number] Voice Confirmation ID: [id number] DOCUMENT ID: [id number] ESTRELLA BENITEZ MD at 0842 CC: [id number] DICTATION DATE: 10/18/19 1220 SEVERITY OF ILLNESS COORDINATOR: 10/18/19 1240 ADM IN [place] [id number] [place] [address]
--- NOTE | 2019-10-19 09:10 | NUR ---
REC TO ROOM VIA STRETCHER FROM VIDEOGRAPHER. L GROIN TEGADERM CDI, SOFT. NO S/S BLEEDING OR HEMATOMA. PPP. HR 63 NSR, BP 98/66, SAT 97% ON RA, RR 20. REMINDED TO KEEP HEAD RELAXED ON PILLOW AND LLE STRAIGHT AND RELAXED.
--- NOTE | 2019-10-19 09:30 | NUR ---
LLE PPP, L GROIN CDI, SOFT, NO S/S BLEEDING OR HEMATOMA. HR NSR 66, BP 85/56, FAMILY AT BEDSIDE, CONVERSING W PT.
--- NOTE | 2019-10-19 10:00 | NUR ---
LLE PPP, L GROIN CDI, SOFT, NO S/S BLEEDING OR HEMATOMA. NSR 62, BP 100/65. FAMILY AT BEDSIDE.
--- NOTE | 2019-10-19 10:30 | NUR ---
L GROIN DRESSING CDI, SOFT. NO S/S BLEEDING OR HEMATOMA. PPP. NSR 65, BP 105/61, RR 15, SAT 98% RA. FAMILY AT BEDSIDE.
--- NOTE | 2019-10-19 11:00 | NUR ---
L GROIN CDI, SOFT. PPP. NO S/S BLEEDING OR HEMATOMA. FAMILY AT BEDSIDE. HR NSR 63, BP 107/63, SAT 97% RA. RR 14.
--- NOTE | 2019-10-19 11:25 | OP ---
PATIENT NAME: MICHELLE DAVEY MEDICAL RECORD: [id number] :56 LOCATION:D.M2 D.2 ADMISSION DATE:10/18/19 SURGEON: ESTRELLA BENITEZ MD DATE OF OPERATION: 10/19/2019 DATE OF SERVICE: 10/19/2019 PROCEDURES: 1. PTCA stent left circumflex. 2. PTCA stent LAD. 3. Laser atherectomy LAD. 4. Selective coronary angiography. PROCEDURE IN DETAIL: After informed consent was obtained and after a detailed description of the risks, benefits as well as alternative therapies, the patient elected to proceed with angiogram and angioplasty. The left femoral area was prepped and draped in normal sterile fashion. Left femoral artery was cannulated via modified Seldinger technique with placement of 6-Tajik sheath. All catheters exchanged through this sheath. FINDINGS: The left anterior descending has previously placed stents with 70% in-stent restenosis. IFR was abnormal with cardiac catheterization yesterday. This was addressed with a 0.9 laser catheter, multiple passes were made throughout the in-stent restenosis. Stenting was undertaken with a 3.5 x 12 mm Patrice. Result was 0% residual stenosis. PTCA STENT OF LEFT CIRCUMFLEX: The left circumflex has 90% stenosis in the mid vessel. This was addressed with a 3.0 x 15 mm Simms. Result was 0% residual stenosis. OVERALL IMPRESSION: Successful percutaneous transluminal coronary angioplasty stent of the left anterior descending and left circumflex, along with laser atherectomy of the left anterior descending, both going from 70% to 90% initial stenosis to 0% residual. TRANSINT:[id number] Voice Confirmation ID: [id number] DOCUMENT ID: [id number] ESTRELLA BENITEZ MD at 1125 CC: [id number] DICTATION DATE: 10/19/19 0845 SECURITIES RESEARCH ANALYST: 10/19/19 1016 ADM IN [place] [address] [place] [address]
--- NOTE | 2019-10-19 11:25 | OP ---
PATIENT NAME: MICHELLE DAVEY MEDICAL RECORD: [id number] :56 LOCATION:D.M2 D.2 ADMISSION DATE:10/18/19 SURGEON: ESTRELLA BENITEZ MD DATE OF OPERATION: 10/18/2019 PROCEDURES: 1. PTCA stent RCA. 2. IFR LAD. 3. Left heart catheterization. 4. Selective coronary angiography. 5. Left ventriculogram. INDICATION: Unstable angina and coronary artery disease. PROCEDURE IN DETAIL: After informed consent was obtained and after a detailed description of risks, benefits as well as alternative therapies, the patient elected to proceed with angiogram and angioplasty. The right femoral area was prepped and draped in normal sterile fashion. Right femoral artery was cannulated via modified Seldinger technique with placement of 6-Latvian sheath. All catheters exchanged through this sheath. FINDINGS: The left ventriculogram was performed in standard 30-degree OTERO view, reveals good cardiac wall motion, ejection fraction 50% to 55%. SELECTIVE CORONARY ANGIOGRAPHY: 1. Left main is with no significant angiographic disease. 2. Left anterior descending has previously placed stents with 70% in-stent restenosis proximally and IFR is abnormal with 0.80. 3. Left circumflex has 90% stenosis in the mid vessel. 4. Right coronary had 95% stenosis to 70% stenosis in the mid vessel after this right coronary is totally occluded. The stenosis feeds a PDA that is nongrafted. The PLV system that feeds via left to right collateral. PTCA STENT OF THE RCA: The stent used was a 2.0 x 15 and 3.5 x 12, both Abernathy stents. Result was 0% residual stenosis. OVERALL IMPRESSION: Successful percutaneous transluminal coronary angioplasty stent of the right coronary artery going from 95% initial stenosis to 0% residual. PLAN: PTCA stent of the lad and circumflex in the near future. TRANSINT:[id number] Voice Confirmation ID: [id number] DOCUMENT ID: [id number] ESTRELLA BENITEZ MD at 1125 CC: [id number] DICTATION DATE: 10/18/19 1656 CENA: 10/18/19 2[address] [place] [address]
--- NOTE | 2019-10-19 11:30 | NUR ---
L GROIN SOFT, CDI, NO S/S BLEEDING OR HEMATOMA. PPP. NSR 61, BP 105/63, SAT 98%. FAMILY AT BEDSIDE.
--- NOTE | 2019-10-19 12:00 | NUR ---
L GROIN CDI, SOFT, NO S/S BLEEDING OR HEMATOMA. PPP. HOB RAISED TO PT COMFORT. SANDWICH AND COFFEE PROVIDED PER PT REQUEST. FAMILY AT BEDSIDE. HR NSR 77, BP 109/57, RR 16, SAT 97%.
--- NOTE | 2019-10-19 12:30 | NUR ---
IV DC, TIP INTACT. MONITORING DC. DR BENITEZ IN TO SEE PT/FAMILY. L GROIN REMAINS CDI, SOFT. NO S/S BLEEDING OR HEMATOMA. DRESSING W HELP OF FAMILY.
--- NOTE | 2019-10-19 13:03 | NUR ---
DC INSTRUCTIONS REVIEWED W PT AND FAMILY. PT DC HOME VIA WHEELCHAIR TO PRIVATE CAR WITH FAMILY. PT HAS ALL BELONGINGS.
--- NOTE | 2019-10-20 09:26 | MORECARE ---
CASE MANAGEMENT DISCHARGE SUMMARY PATIENT: MICHELLE DAVEY UNIT: [id number] ADM DATE: 10/18/19 AGE: 59 : 56 SEX: M ROOM/BED: D.2122 AUTHOR: RASHEEDA BONILLA PHYSICIAN: REFERRING PHYSICIAN: ESTRELLA BENITEZ MD DATE OF SERVICE: 10/20/19 Discharge Plan Patient Name: MICHELLE DAVEY [facility] [facility] 1960 Planned Disposition: Home Anticipated Discharge Date: 10/19/19 Discharge Date: 10/19/2019 Expected LOS: 1 Initial Reviewer: [email or web address] Initial Review Date: 10/20/2019 Generated: 10/20/19 10:26 am Patient Name: MICHELLE DAVEY Page [id number] at 0926 All edits/amendments must be made on the electronic document DICTATION DATE: 10/20/19925 HUMAN RESOURCE MANAGEMENT INSTRUCTOR: ENRICO 10/20/19925 RPT#: [id number] DC DATE:10/19/19 STATUS: DIS IN [facility] [address] [place] [address] END OF REPORT
--- NOTE | 2019-10-21 12:54 | DS ---
PATIENT:MICHELLE THEODORE :56 MEDICAL RECORD: [id number] DISCHARGE SUMMARY ADMISSION DATE: 10/18/19 DISCHARGE DATE: 10/19/19 DATE OF DISCHARGE: 10/19/2019 DIAGNOSES: 1. Unstable angina. 2. Coronary artery disease. 3. Percutaneous transluminal coronary angioplasty and stent of the right coronary artery, left anterior descending, and left circumflex this admission. 4. Hypertension. 5. Hyperlipidemia. HOSPITAL COURSE: Mr. Theodore presents with unstable anginal symptomatology, found to have 3-vessel coronary artery disease, underwent successful PTCA and stent, all 3 vessels, was discharged home with the addition of Plavix to his medical regimen. Will follow up with [facility] in 1 month. TRANSINT:[id number] Voice Confirmation ID: [id number] DOCUMENT ID: [id number] ESTRELLA BENITEZ MD at 1254 CC: [id number] DICTATION DATE: 10/19/19 0844 COATING MACHINE OPERATOR: 10/19/19 2140 DIS IN 10/19/19 [place] [id number] [place] [id number]
== END 2019-10-19 13:05 | disposition home or self-care (01) ==
LOC: OBSVTIME → D.OPS 11:39 → D.ER 11:39 → D.M2 12:47 → D.ER 12:47 → EDSTATUS 15:26 → OBSVTIME 18:00 → D.M2 10-19 13:05 → D.OPS 10-19 13:05 → D.M2 10-19 13:05
PROVIDERS: Family Medicine; ATTEND Internal Medicine Interventional Cardiology
DX: I25.110 Atherosclerotic heart disease of native coronary artery with unstable angina pectoris (principal); I10 Essential (primary) hypertension; E78.5 Hyperlipidemia, unspecified; Z95.5 Presence of coronary angioplasty implant and graft; Z82.49 Family history of ischemic heart disease and other diseases of the circulatory system
CPT/HCPCS: 93458; 93571; C9600 ×2; C9602